=== PATIENT | female | born 2000 | race Two or more races ===

== ENCOUNTER 2025-08-20 19:39 | Emergency (ER) | payer MEDICAID ==
[~2025-08-20] VITALS: Ht 165.1 cm; Wt 74.8 kg
[2025-08-20] MEDS ORDERED: AMOX-430 PO (21:53)
[2025-08-20] MEDS ORDERED: FLUT16SP16 BNOSTRILS (21:53)
[2025-08-20 22:02] VITALS: BP 128/66; TEMP 98; O2SAT 95
== END 2025-08-20 22:03 | disposition home or self-care (01) ==
LOC: ER 19:43
DX: R51.9 Headache, unspecified (principal); I51.9 Heart disease, unspecified; J45.909 Unspecified asthma, uncomplicated